=== PATIENT | female | born 1955 | race Caucasian/White ===

== ENCOUNTER → 2017-07-20 | Outpatient (CLI) | payer BC ==
[2017-07-20 09:27] LABS: Basophils # (A) 0.1 k/uL (0-0.2); Basophils % (A) 1 %; Eosinophils # (A) 0.1 k/uL (0-0.7); Eosinophils % (A) 1 %; HCT 41.9 % (34.0-46.0); HGB 13.5 gm/dL (11.4-16.0); Lymphocytes # (A) 1.4 k/uL (1.0-4.8); Lymphocytes % (A) 36 %; MCH 29.5 pg (25.0-35.0); MCHC 32.2 g/dL (31.0-37.0); MCV 91.7 fL (80.0-100.0); Mean Platelet Volume 6.3; Monocytes # (A) 0.5 k/uL (0-1.0); Monocytes % (A) 11 %; Neutrophils # (A) 1.9 k/uL (1.3-7.7); Neutrophils % (A) 47 %; Platelet Count 294 k/uL (150-450); RBC 4.57 m/uL (3.80-5.40); RDW 13.3 % (11.5-15.5); WBC 3.9 k/uL (3.8-10.6)
[2017-07-20 09:29] LABS: Partial Thromboplastin Time 24.3 sec (22.0-30.0); Prothrombin Time 9.8 sec (9.0-12.0)
[2017-07-20 09:48] LABS: Potassium 4.9 mmol/L (3.5-5.1)
== END | disposition home or self-care (01) ==
LOC: LABWHC1 08:55
PROVIDERS: ATTEND Orthopaedic Surgery
DX: Z01.812 Encounter for preprocedural laboratory examination (principal); M16.52 Unilateral post-traumatic osteoarthritis, left hip; D68.9 Coagulation defect, unspecified; I10 Essential (primary) hypertension
CPT/HCPCS: 36415; 80051; 85025; 85610; 85730; 86850; 86900; 86901; 87070

== ENCOUNTER → 2018-04-26 | Outpatient (CLI) | payer BC | LOC: LABPAT 15:57 | PROVIDERS: ATTEND Orthopaedic Surgery | DX: Z01.812 Encounter for preprocedural laboratory examination (principal); M16.11 Unilateral primary osteoarthritis, right hip | CPT/HCPCS: 86850; 86900; 86901; 87070 ==

== ENCOUNTER 2018-05-06 05:45 | Inpatient (IN) | payer BC ==
[2018-04-24 11:12] VITALS: BMI 20.1
--- NOTE | 2018-05-05 16:02 | HP ---
HISTORY AND PHYSICAL DATE OF SERVICE: Surgery is 05/06/2018 HISTORY OF PRESENT ILLNESS: Aliya Orosco is a 62-year-old patient seen with symptomatic right hip osteoarthritis. We discussed treatment options. She elected to proceed with right total hip arthroplasty. Consent was obtained, clearance provided by Dr. Geovanny Estrada. PAST MEDICAL HISTORY: Hyperlipidemia, hypertension. PAST SURGICAL HISTORY: Oral surgery. MEDICATIONS: Atorvastatin and lisinopril. ALLERGIES: None. SOCIAL HISTORY: Patient currently smokes 1/2 pack cigarettes daily. PHYSICAL EXAMINATION: Evaluation of the right hip: There is a very limited range of motion with severe pain. Diffuse tenderness about the hip girdle. Straight leg raise negative. Distal neurovascular exam intact. RADIOGRAPHS: Radiographs of the right hip reveal severe osteoarthritic changes. IMPRESSION: 1. Right hip osteoarthritis. 2. Hypertension. 3. Hyperlipidemia. PLAN: Direct anterior right total hip arthroplasty. Surgery scheduled for 05/06/2018. MMODL / IJN: [id number] /
[~2018-05-06 05:45] MED LIST: ACETAMINOPHEN TAB 500 MG TAB PO ONE; MELOXICAM 7.5 MG TAB PO ONE; TRANEXAMIC ACID 1,000 MG in SODIUM CHLORIDE 0.9% 50 ML IVPB ONE; ceFAZolin IN SWFI 2 GM/20 ML SYRINGE IVP ONE
[2018-05-06] MEDS ORDERED: DEXAMETHASONE SOD PHOSPHATE 10 MG/ML 1 ML VIAL IV ONE (05:55)
[2018-05-06] MEDS ORDERED: LIDOCAINE 1% 20 ML VIAL (10MG/ML) FOR IV START INTRADERMA PRN (05:55)
[2018-05-06] MEDS ORDERED: HYDROmorphone 0.5 MG/0.5 ML SYRINGE IVP PRN (05:55)
[2018-05-06] MEDS ORDERED: SCOPOLAMINE 1.5MG/72HR PATCH TRANSDERM ONE (05:55)
[2018-05-06] MEDS ORDERED: ONDANSETRON 4 MG/2 ML VIAL IVP ONE (05:55)
[2018-05-06] MEDS: LACTATED RINGERS 1,000 ML IV SCH (06:32)
[2018-05-06] MEDS ORDERED: ROPIVACAINE 246.25 MG, EPINEPHrine 0.5 MG, KETOROLAC 30 MG, cloNIDine HCL/PF 80 MCG, WA... MISCELLANE ONE ×5 (07:15)
[2018-05-06] MEDS ORDERED: ceFAZolin 3,000 MG in SODIUM CHLORIDE 0.9% IRRIGATIO 3,000 ML IRRIGATION ONE (08:05)
--- NOTE | 2018-05-06 09:07 | FL ---
EXAMINATION TYPE: FL guidance operating room DATE OF EXAM: 05/06/2018 HISTORY: Flouroscopy time 19 seconds of fluoroscopy provided. IMPRESSION: 1. Fluoroscopy time.
--- NOTE | 2018-05-06 09:07 | XR ---
EXAMINATION TYPE: XR Hip Limited RT DATE OF EXAM: 05/06/2018 COMPARISON: NONE HISTORY: Postop TECHNIQUE: One view submitted. FINDINGS: There is a prosthetic hip in near anatomic alignment. There is soft tissue edema and emphysema. IMPRESSION: 1. Postoperative change. Appears in near-anatomic alignment.
[2018-05-06] MEDS ORDERED: HYDROcodone/APAP 7.5-325MG 1 EACH TAB PO PRN ×2 (09:09)
[2018-05-06] MEDS ORDERED: HYDROmorphone 1 MG/ML 1 ML SYRINGE IVP PRN ×3 (09:09)
[2018-05-06] MEDS ORDERED: ONDANSETRON 4 MG/2 ML VIAL IVP PRN (09:09)
[2018-05-06] MEDS ORDERED: NALOXONE 0.4 MG/ML 1 ML VIAL IV PRN (09:09)
--- NOTE | 2018-05-06 09:09 | P.OP ---
Date of Procedure: 05/06/18 Preoperative Diagnosis: Right hip osteoarthritis Postoperative Diagnosis: Right hip osteoarthritis Procedure(s) Performed: Direct anterior right total hip arthroplasty Implants: 1. Depuy Corail KLA size 13 high offset with collar press-fit femoral stem 2. Depuy pinnacle 52 mm press-fit acetabular shell 3. Depuy pinnacle polyethylene acetabular liner neutral 36 mm ID 52 mm OD 4. Biolox delta ceramic femoral head 36 mm +1.5 Anesthesia: local, spinal Surgeon: Raheem Blackmon Doctor Chiropractic #1: Ezequiel Eli Estimated Blood Loss (ml): 200 Pathology: other (Femoral head) Condition: stable Disposition: PACU Indications for Procedure: 62-year-old patient seen with symptomatic right hip osteoarthritis. After treatment options were discussed, she elected to proceed with total hip arthroplasty. Operative Findings: see description of procedure Description of Procedure: The patient was taken to the operative suite. Patient underwent a final anesthetic by the department of anesthesia. Patient was then transferred to the [place] table. Patient was given preoperative IV antibiotics and TXA. Both lower extremities were placed in standard leg spars. The hip was then prepped and draped in the normal sterile orthopedic fashion. A standard anterior incision was made beginning 3 cm lateral and 1 cm distal to the ASIS extending 10 cm. Dissection was then carried down through the subcutaneous soft tissues down to the fascia overlying the tensor fascia michael. An incision was now made through the fascia. Careful dissection was taken down exposing the tensor fascia michael muscle. A Cobra retractor was now placed along the medial femoral neck and a second one along the lateral femoral neck. The venous circumflex vessels were now identified, cauterized and clipped. We identified the anterior hip capsule. An incision was made through the hip capsule along the lateral border. I performed a partial anterior capsulectomy. Retractors were now placed around the femoral neck itself. A femoral neck cut was now made with a sagittal saw. It was completed with an osteotome at the lateral neck area. The femoral head was now removed without difficulty. The extremity was now rotated to 45 of external rotation. It was locked in position. Residual labrum was now debrided out. Serial reaming was performed of the acetabulum while Emanuel HUGHES assisted holding an anterior retractor for exposure. Once we reached the appropriate size and a trial was position and fit nicely. The appropriate size was now chosen opened and made available. It was introduced into the acetabulum without difficulty. The C-arm/fluoroscopy was now brought into the operative field. We made sure we had a true AP pelvic view. We now under direct C-arm/fluoroscopy introduced into the acetabular component with appropriate version and inclination. I held the cup in appropriate position well Emanuel HUGHES used a mallet to seat the acetabular component. I noted the component now to be well seated and stable. Acetabular cup introduce her was removed. The C-arm was pulled back. An appropriate liner was introduced and clicked into position. It was felt to be stable. At this point retractors were removed. The extremity was now placed into 120 external rotation with no traction. The leg was now dropped to the ground and adducted. Appropriate retractors were now positioned along the proximal femur. We also placed our femoral look into position. Additional capsular releasing was performed to gain access to the proximal femur. We now used a box osteotome. A canal finder was now utilized. Serial broaching was now performed with the assistance of Emanuel HUGHES tapping the broaches down with a mallet while held the broach in appropriate rotation and position. This was done until we reached the appropriate size with good overall rotational stability. Appropriate calcar planing was performed. A trial head/neck was placed into position. The hip was now reduced. The C-arm/fluoroscopy was brought back into the operative field. A spot film was obtained of the nonoperative hip. A spot film was obtained of the trial components. Overlays were performed, we noted good overall alignment and positioning for determining leg length. The C- arm/fluoroscopy was pulled back. Retractors were repositioned and the hip was dislocated. The leg was again taken down to the ground and adducted. Appropriate retractors were repositioned as well as the femoral hook. All trial components were removed. The femoral implant was opened along with the femoral head. The femoral implant was introduced on the appropriate handle into our pre-broached area. I held the component position well Emanuel HUGHES used a mallet to seat the femoral component. The femoral component was now noted to be well seated and stable.. The femoral head was introduced with good positioning and fixation noted. Retractors were now removed. The hip was now reduced. There appeared be good positioning of the hip confirmed on intraoperative fluoroscopy. Spot films were obtained to document this. A second gram of TXA was given. The deep and superficial soft tissues were infiltrated with local analgesic. Bipolar cautery had been utilized intermittently through the procedure for hemostasis. The wound was irrigated copiously with pulse lavage mechanical irrigation. The fascia was repaired with Vicryl suture. The subcutaneous soft tissues were repaired in layers with Vicryl suture. The skin was approximated with pernio/Dermabond. Sterile dressings were applied. Patient was then awakened, transferred to a bed and taken to recovery in stable condition. Emanuel HUGHES assisted with the complex procedure.
[2018-05-06] MEDS ORDERED: LACTATED RINGERS 1,000 ML IV ONE (09:14)
[2018-05-06] MEDS ORDERED: diphenhydrAMINE 50 MG/ML 1 ML VIAL IVP PRN (09:40)
[2018-05-06] MEDS ORDERED: diphenhydrAMINE 25 MG CAP PO PRN (13:32)
[2018-05-06] MEDS: ceFAZolin IN SWFI 2 GM/20 ML SYRINGE IVP SCH ×2 (17:29→23:32)
[2018-05-06] MEDS: traMADol 50 MG TAB PO PRN (19:04)
[2018-05-06] MEDS ORDERED: ATORVASTATIN 10 MG TAB PO SCH (21:00)
[2018-05-07] MEDS: traMADol 50 MG TAB PO PRN ×3 (00:53→13:13)
[2018-05-07 01:35] VITALS: RESP 16
[2018-05-07 07:25] VITALS: BP 103/64; PULSE 96; TEMP 98
[2018-05-07] MEDS: LACTATED RINGERS 1,000 ML IV SCH (07:34)
[2018-05-07 07:46] LABS: Basophils % (A) 1 %; Eosinophils # (A) 0.1 k/uL (0-0.7); Eosinophils % (A) 2 %; Lymphocytes # (A) 1.7 k/uL (1.0-4.8); Lymphocytes % (A) 49 %; MCH 30.1 pg (25.0-35.0); MCV 91.3 fL (80.0-100.0); Mean Platelet Volume 7.8; Monocytes # (A) 0.5 k/uL (0-1.0); Monocytes % (A) 15 %; Neutrophils % (A) 29 %; Platelet Count 234 k/uL (150-450); RBC 3.29 m/uL (3.80-5.40); RDW 15.1 % (11.5-15.5); WBC 3.4 k/uL (3.8-10.6)
[2018-05-07 07:55] LABS: HGB 9.9 gm/dL (11.4-16.0)
[2018-05-07] MEDS ORDERED: ENOXAPARIN 40 MG/0.4 ML SYRINGE SQ SCH (09:00)
[2018-05-07] MEDS ORDERED: MELOXICAM 7.5 MG TAB PO SCH (09:00)
[2018-05-07] MEDS ORDERED: LISINOPRIL 10 MG TAB PO SCH (09:00)
[2018-05-07] MEDS ORDERED: FAMOTIDINE 20 MG TAB PO SCH (09:00)
--- NOTE | 2018-05-07 10:44 | P.CONS ---
History of Present Illness - Reason for Consult Consult date: 05/07/18 medical management Requesting physician: Raheem Blackmon - Chief Complaint s/p right AARON - History of Present Illness 62-year-old female with a past medical history significant for hypertension and hyperlipidemia who underwent a right total hip arthroplasty on 05/06/[address] Estrada was consulted for medical management. The patient was examined postoperatively on the medical floor. She states her pain is tolerable at this time. She denies nausea or vomiting. Denies shortness breath, cough, or congestion. Denies chest pain or pressure. Dressing to right hip is clean dry and intact. Vital signs have been stable. Patient is anticipating working with physical therapy today and is hoping to be discharged home later this afternoon. REVIEW OF SYSTEMS: Those systems with pertinent positive or pertinent negative responses have been documented in the HPI PHYSICAL EXAM: GENERAL: This is a 62-year-old female in no apparent distress at the time of examination. Pleasant and cooperative. HEENT: Head is atraumatic, normocephalic. Pupils are equal, round, and reactive to light. Sclerae anicteric. Conjunctivae are clear. Mucus membranes of the mouth are moist. Neck is supple. RESPIRATORY: Clear to auscultation. No wheezes, rales, or rhonchi. No use of accessory muscles. Patient maintaining oxygen saturation greater than 92%. CARDIOVASCULAR: Regular rate and rhythm. S1 and S2 noted. No systolic or diastolic murmur auscultated. No JVD noted. No S3 or S4 noted. GASTROINTESTINAL: No distention noted. Abdomen soft and round. Normal active bowel sounds auscultated x 4 quadrants. INTEGUMENTARY: Dressing to right hip clean dry and intact. No cyanosis. No jaundice. No rashes noted. No cellulitis noted. EXTREMITIES: 2+ peripheral pulses. No evidence of peripheral edema. No calf tenderness noted. NEUROLOGIC: Cranial nerves II-XII intact. PSYCHIATRIC: Awake, alert, and oriented X 3. Appropriate affect. Intact judgement and insight. ASSESSMENT: Osteoarthritis, status post right total hip arthroplasty History of left total hip arthroplasty, July 2017 Hypertension Hyperlipidemia Nicotine dependence PLAN: Continue postoperative care per orthopedics. Activity as tolerated. PT/OT. Pain control. Resume home medications as appropriate. Monitor vital signs and address as appropriate. Incentive spirometer 10 times hour while awake. DVT prophylaxis: Lovenox 40 mg subcu daily. GI prophylaxis: Pepcid 20 mg daily Thank you for this consultation. We will continue to follow with the patient during their hospitalization. Aliya is stable for discharge from a medical standpoint when cleared by orthopedics. Nurse practitioner note has been reviewed by physician. Signing provider agrees with the documented findings, assessment, and plan of care. Past Medical History Past Medical History: Hyperlipidemia, Hypertension, Osteoarthritis (OA) History of Any Multi-Drug Resistant Organisms: None Reported Past Surgical History: Joint Replacement Additional Past Surgical History / Comment(s): jaw surgery, ant TLH 07/30/17 Past Anesthesia/Blood Transfusion Reactions: No Reported Reaction Past Psychological History: No Psychological Hx Reported Smoking Status: Current every day smoker Past Alcohol Use History: Daily Additional Past Alcohol Use History / Comment(s): smoker 40 years on and off smokes 1/2ppd Past Drug Use History: None Reported - Past Family History Mother Family Medical History: No Reported History Medications and Allergies Home Medications Medication Instructions Recorded Confirmed Type Atorvastatin [Lipitor] 10 mg PO HS 07/19/17 05/06/18 History Calcium Carbonate [Calcium] 600 mg PO DAILY 07/19/17 05/06/18 History Lisinopril [Zestril] 10 mg PO QAM 07/19/17 05/06/18 History [place]-3 Fatty Acids/Fish Oil [Fish 1 cap PO DAILY 07/19/17 05/06/18 History Oil 1,000 mg Softgel] traMADol HCl [Ultram] 50 mg PO Q6H PRN #40 tab 07/31/17 05/06/18 Rx Allergies Allergy/AdvReac Type Severity Reaction Status Date / Time codeine Allergy Rash/Hives Verified 05/06/18 13:33 Physical Exam Vitals: Vital Signs Temp Pulse Pulse Resp BP Pulse Ox 05/07/18 07:00 98.0 F 96 16 103/64 96 05/07/18 04:00 94 16 05/07/18 00:30 98.2 F 94 16 117/71 97 05/07/18 00:00 84 18 05/06/18 20:00 84 18 05/06/18 19:00 98 F 84 18 110/60 97 05/06/18 16:20 16 05/06/18 15:00 97.9 F 76 18 85/47 98 05/06/18 11:55 82 16 98/56 99 05/06/18 11:25 83 16 93/61 100 05/06/18 11:10 83 16 101/64 98 05/06/18 10:55 87 16 101/64 99 05/06/18 10:40 88 16 97/56 99 Intake and Output 05/06/18 05/07/18 05/07/18 22:59 06:59 14:59 Intake Total 120 Balance 120 Intake: Oral 120 Other: # Voids 2 1 Weight 49.895 kg Results CBC & Chem 7: 05/07/18 06:27 Labs: Abnormal Lab Results - Last 24 Hours (Table) 05/07/18 Range/Units 06:27 WBC 3.4 L (3.8-10.6) k/uL RBC 3.29 L (3.80-5.40) m/uL Hgb 9.9 L D (11.4-16.0) gm/dL Hct 30.0 L (34.0-46.0) % Neutrophils # 1.0 L (1.3-7.7) k/uL
--- NOTE | 2018-05-07 11:05 | P.PN ---
Subjective Progress Note Date: 05/07/18 Principal diagnosis: s/p right elena Patient evaluated at bedside, she appears comfortable. Pain is well controlled. She denies any chest pain, shortness of breath, fever or chills. Objective - Vital Signs Vital signs: Vital Signs Temp 98.0 F 05/07/18 07:00 Pulse 96 05/07/18 07:00 Resp 16 05/07/18 07:00 BP 103/64 05/07/18 07:00 Pulse Ox 96 05/07/18 07:00 Intake & Output 05/06/18 05/07/18 05/07/18 18:59 06:59 18:59 Intake Total 1601 120 Output Total 900 Balance 701 120 Weight 49.895 kg Intake: IV 1601 Oral 120 Output: Urine 700 Estimated Blood Loss 200 Other: # Voids 1 1 - Exam Right lower extremity: Incision is clean, dry, and intact. The exofin fusion tape is in good condition. There is minimal soft tissue swelling and ecchymosis surrounding the medial and lateral aspects of the incision. Calf is soft, no tenderness with palpation. Plantar flexion, dorsiflexion, EHL, FHL are intact. Sensory exam to light touch throughout the extremity is intact, dorsal pedis pulses 2+. - Labs CBC & Chem 7: 05/07/18 06:27 Labs: Abnormal Lab Results - Last 24 Hours (Table) 05/07/18 Range/Units 06:27 WBC 3.4 L (3.8-10.6) k/uL RBC 3.29 L (3.80-5.40) m/uL Hgb 9.9 L D (11.4-16.0) gm/dL Hct 30.0 L (34.0-46.0) % Neutrophils # 1.0 L (1.3-7.7) k/uL Assessment and Plan Plan: Assessment: Postoperative day #1 status post right total hip arthroplasty Plan: Pain control, tramadol 50 mg GI and DVT prophylaxis, aspirin 81 mg twice a day Daily dressing changes Home therapy and nursing after discharge Medical recommendations Discharge planning: Patient will be discharged home today Time with Patient: Less than 30
--- NOTE | 2018-05-07 11:08 | P.DS ---
Providers Date of admission: 05/06/18 05:45 Expected date of discharge: 05/07/18 Attending physician: Raheem Blackmon Consults: 05/06/18 09:09 Consult Physician Routine Consulting Provider: Geovanny Estrada Reason/Comments: Medical management Do you want consulting provider notified?: Yes Primary care physician: Geovanny Estrada [facility] Course: Date of admission: 05/06/2018 Date of discharge: 05/07/2018 Admission diagnosis: Status post right total hip arthroplasty Discharge diagnosis: Same Attending physician: Dr. Blackmon Surgical procedures: Right total hip arthroplasty Brief history: Patient is a 62-year-old female with a history of with progressive primary right hip osteoarthritis. At this point patient has failed conservative treatment measures and has opted to proceed with a elective a right total hip arthroplasty. Hospital course: Details of patient's surgery can be found in operative report. Patient tolerated the procedure well and was subsequently transported to orthopedic floor. Patient's orthopeidc and medical care was provided daily. Patient had daily laboratory tests performed for evaluation of overall blood counts. Patient had daily physical therapy to include strengthening range of motion as well as education with walker ambulation. Patient was treated with Lovenox for their postoperative DVT prophylaxis during their inpatient stay. Patient was noted to have a relatively uneventful postoperative course. Patient reported satisfactory pain control with oral pain medications by postoperative day 0. Patient showed satisfactory progress with physical therapy. Patient moved steadily through the program and had no difficulty meeting the goals by postoperative day 1. Given patient's otherwise satisfactory course and having met physical therapy goals, plan is to discharge patient home on postoperative day 1. Discharge condition/disposition: Patient will be discharged home in stable condition. Discharge medications: Instructions are given on resumption of patient's normal daily medications per primary care recommendation, in addition patient will be prescribed tramadol 50 mg, Colace 100 mg, aspirin 81mg. Discharge instructions: 1. Wound care and infection precautions, keep incision dry and covered while showering, no lotions, creams, moisturizers. No soaking, tubs, pools, hottubs. Do not scrub over the incision. 2. Weight-bear as tolerated with walker / cane until follow-up. 3. Ice and elevate when necessary. Do not exceed 20 minutes per hour with ice pack. 4. Utilize compression sleeve until seen at first follow up appointment. 5. Visiting nursing care. 6. Home physical therapy. 7. Pain meds and anticoagulants per prescription. 8. Pain medication has potential to cause constipation. Increase oral fluid and fiber intake. Contact primary care provider if you have not had a bowel movement within 48 hours after discharge 9. No anti-inflammatory medication until discussed at first post operative visit, this including Motrin, Aleve, Mobic, Diclofenac. 10. Follow up in office at 2 weeks postop with Emanuel Eli PA-C 11. Follow up with your primary care doctor 7-10 days after discharge. 12. Contact [facility] with any questions, . Procedures: Right total hip arthroplasty Patient Condition at Discharge: Good Plan - Discharge Summary Discharge Rx Participant: Yes New Discharge Prescriptions: New Aspirin [Adult Low Dose Aspirin EC] 81 mg PO BID #60 tablet. Docusate [Colace] 100 mg PO DAILY #30 capsule traMADol HCl [Ultram] 50 mg PO Q6H PRN #28 tab PRN Reason: Pain Continue Calcium Carbonate [Calcium] 600 mg PO DAILY Atorvastatin [Lipitor] 10 mg PO HS Lisinopril [Zestril] 10 mg PO QAM [place]-3 Fatty Acids/Fish Oil [Fish Oil 1,000 mg Softgel] 1 cap PO DAILY Discharge Medication List Atorvastatin [Lipitor] 10 mg PO HS 07/19/17 [History] Calcium Carbonate [Calcium] 600 mg PO DAILY 07/19/17 [History] Lisinopril [Zestril] 10 mg PO QAM 07/19/17 [History] [place]-3 Fatty Acids/Fish Oil [Fish Oil 1,000 mg Softgel] 1 cap PO DAILY [History] Aspirin [Adult Low Dose Aspirin EC] 81 mg PO BID #60 tablet. 05/07/18 [Rx] Docusate [Colace] 100 mg PO DAILY #30 capsule 05/07/18 [Rx] traMADol HCl [Ultram] 50 mg PO Q6H PRN #28 tab 05/07/18 [Rx] Follow up Appointment(s)/Referral(s): [facility], [NON-STAFF] - Ezequiel Eli, PAC [PHYSICIAN EDUCATIONAL CONSULTANT] - 2 Weeks Activity/Diet/Wound Care/Special Instructions: Patient does not need a follow up appointment with Dr. Estrada. She was recently seen in his office. She has her next appointment in the spring already scheduled. She is aware to call Dr. Estrada if she needs anything or has any concerns. Orthopedic Discharge Instructions: 1. Wound care and infection precautions, keep incision dry and covered while showering, no lotions, creams, moisturizers. No soaking, pools, hot tubs. Do not scrub over incision. 2. Weight-bear as tolerated with walker / cane until follow-up. 3. Ice and elevate when necessary. Do not exceed 20 minutes per hour with ice pack. 4. Utilize compression sleeve until seen at first follow up appointment. 5. Pain meds and anticoagulants per prescription. 6. Pain medication has potential to cause constipation. Increase oral fluid and fiber intake. Contact primary care provider if you have not had a bowel movement within 48 hours after discharge. 7. No anti-inflammatory medication until discussed at first post operative visit, this including Motrin, Aleve, Mobic, Diclofenac 8. Follow up in office at 2 weeks postop with Emanuel Eli PA-C 9. Follow up with your primary care doctor 7-10 days after discharge. 10. Contact [facility] with any questions, . Discharge Disposition: HOME WITH HOME HEALTH SERVICES
== END 2018-05-07 14:36 | disposition home health service (06) | DRG 470 ==
LOC: 2ORMAIN 05:45 → 4SSUR 12:07
PROVIDERS: ADMIT Orthopaedic Surgery; ATTEND Orthopaedic Surgery
PROC: 0SR904A Replacement of Right Hip Joint with Ceramic on Polyethylene Synthetic Substitute, Uncemented, Open Approach (ICD-10-PCS; principal; 2018-05-06 07:00)
DX: M16.11 Unilateral primary osteoarthritis, right hip (principal); E78.5 Hyperlipidemia, unspecified; I10 Essential (primary) hypertension; F17.210 Nicotine dependence, cigarettes, uncomplicated; Z71.6 Tobacco abuse counseling; Z79.899 Other long term (current) drug therapy; Z96.642 Presence of left artificial hip joint; Z88.5 Allergy status to narcotic agent
CPT/HCPCS: 73501; 85025; 86850; 86900; 86901; 88300